=== PATIENT | female | born 1990 | race American Indian/Alaskan Native ===

== ENCOUNTER 2022-03-20 01:07 | Emergency (ER) | payer SELFPAY ==
[2022-03-20 01:44] VITALS: BP 108/71
[2022-03-20 08:19] LABS: Basophils # (Auto) 0.1 K/mm3 (0.0-0.1); Basophils % (Auto) 0.9 % (0.0-1.8); Eosinophils % (Auto) 0.3 % (0.0-4.3); Lymphocytes % (Auto) 25.6 % (13.4-35.0); Mean Corpuscular HGB Conc 34 % (30-34); Mean Corpuscular Volume 91 fl (79-97); Monocytes # (Auto) 0.9 K/mm3 (0.0-0.8); Platelet Count 319 K/mm3 (140-440); Red Blood Count 4.83 M/mm3 (3.65-5.03); Red Cell Distribution Width 15.1 % (13.2-15.2)
[2022-03-20 08:46] LABS: Alanine Aminotransferase 32 units/L (7-56); Albumin 5.4 g/dL (3.9-5); BUN/Creatinine Ratio 23; Blood Urea Nitrogen 18 mg/dL (7-17); Calcium 10.1 mg/dL (8.4-10.2); Hemolysis Index 17
[2022-03-20] MEDS ORDERED: SODIUM CHLORIDE 0.9% 1000 ML 1,000 ML IV ONE (08:58)
--- NOTE | 2022-03-20 10:03 | Emergency Department Report ---
ED Seizure HPI - General Chief Complaint: Seizure Stated Complaint: SEIZURE Time Seen by Provider: 03/20/22 10:02 Source: patient Mode of arrival: Ambulatory Limitations: No Limitations - History of Present Illness Initial Comments: Patient is a 32-year-old female that is in the ER for questionable seizure last night. She does have a seizure disorder. She states that she is taking Keppra 500 mg twice daily. Provider's first contact with patient was early this morning while cleaning out the waiting room from overnight patient congestion. She has been there most of the evening. She has had no seizure in the numerous hours that she has been here. She is ambulatory, nontoxic [id number] on exam. She is a poor informant. She denies any history other than the seizure disorder. MD Complaint: seizure Seizure History: known seizure disorder Place: home Possible Precipitating Event: none Associated Symptoms: denies other symptoms Treatments Prior to Arrival: none - Related Data Allergies Allergy/AdvReac Type Severity Reaction Status Date / Time No Known Allergies Allergy Unverified 03/20/22 01:44 ED Review of Systems ROS: Stated complaint: SEIZURE Other details as noted in HPI Comment: All other systems reviewed and negative ED Past Medical Hx - Past Medical History Previous Medical History?: Yes Hx Seizures: Yes - Surgical History Past Surgical History?: Yes - Family History Family history: no significant ED Physical Exam - General Limitations: No Limitations General appearance: alert, in no apparent distress - Head Head exam: Present: atraumatic, normocephalic - Eye Eye exam: Present: normal appearance - ENT ENT exam: Present: mucous membranes moist - Neck Neck exam: Present: normal inspection - Respiratory Respiratory exam: Present: normal lung sounds bilaterally. Absent: respiratory distress - Cardiovascular Cardiovascular Exam: Present: regular rate, normal rhythm. Absent: systolic murmur, diastolic murmur, rubs, gallop - GI/Abdominal GI/Abdominal exam: Present: soft, normal bowel sounds - Extremities Exam Extremities exam: Present: normal inspection - Back Exam Back exam: Present: normal inspection - Neurological Exam Neurological exam: Present: alert, oriented X3 - Psychiatric Psychiatric exam: Present: normal affect, normal mood - Skin Skin exam: Present: warm, dry, intact, normal color. Absent: rash ED Course Vital Signs 03/20/22 01:39 Temperature 98.9 F Pulse Rate 87 Respiratory 16 Rate Blood Pressure 108/71 [Right] O2 Sat by Pulse 97 Oximetry ED Medical Decision Making - Lab Data Result diagrams: 03/20/22 08:05 03/20/22 08:05 - Medical Decision Making Labs 03/20/22 03/20/22 08:05 08:05 WBC 7.9 RBC 4.83 Hgb 15.0 H Hct 44.0 H MCV 91 MCH 31 MCHC 34 RDW 15.1 Plt Count 319 Lymph % (Auto) 25.6 [place] % (Auto) 11.0 H Eos % (Auto) 0.3 Baso % (Auto) 0.9 Lymph # (Auto) 2.0 [place] # (Auto) 0.9 H Eos # (Auto) 0.0 Baso # (Auto) 0.1 Seg Neutrophils % 62.2 Seg Neutrophils # 4.9 Sodium 142 Potassium 4.4 Chloride 106.8 Carbon Dioxide 22 Anion Gap 18 BUN 18 H Creatinine 0.8 Estimated GFR > 60 BUN/Creatinine Ratio 23 Glucose 92 Calcium 10.1 Total Bilirubin 1.00 AST 21 ALT 32 Alkaline Phosphatase 65 Total Creatine Kinase 396 H Total Protein 8.7 H Albumin 5.4 H Albumin/Globulin Ratio 1.6 Vital Signs 03/20/22 01:39 Temperature 98.9 F Pulse Rate 87 Respiratory 16 Rate Blood Pressure 108/71 [Right] O2 Sat by Pulse 97 Oximetry Labs noted. CK mildly elevated. But creatinine normal. Patient taking p.o. No seizure activity noted in the close to 12 hours patient has been in the emergency department. She is ambulatory. She is taking p.o. Patient has a known seizure disorder and is on her Keppra. Patient being discharged home with discharge plan of care including diet, activity, medications and follow-up. Have given her referral for follow-up for management of her Keppra and other medical concerns. She verbalizes understanding of discharge plan of care - Differential Diagnosis ?sz Critical care attestation.: If time is entered above; I have spent that time in minutes in the direct care of this critically ill patient, excluding procedure time. ED Disposition Clinical Impression: Seizure disorder Disposition: 01 HOME / SELF CARE / HOMELESS Is pt being admited?: No Does the pt Need Aspirin: No Condition: Stable Instructions: Seizure, Adult, [id number] Additional Instructions: continue your home meds follow up with pcp ruth referral below Referrals: PAMELA BONILLA MD [Staff Physician] - 3-5 Days Time of Disposition: 10:03
== END 2022-03-20 12:04 | disposition home or self-care (01) ==
LOC: ED 01:07
DX: G40.909 Epilepsy, unspecified, not intractable, without status epilepticus (principal)
CPT/HCPCS: 36415; 80053; 82550; 85025; 99283

== ENCOUNTER 2022-04-17 12:30 | Emergency (ER) | payer SELFPAY ==
[2022-04-17 12:47] VITALS: BP 117/69
--- NOTE | 2022-04-17 13:46 | Emergency Department Report ---
ED General Adult HPI - General Chief complaint: Seizure Stated complaint: SEIZURES Source: patient Mode of arrival: Ambulatory Limitations: No Limitations - History of Present Illness Initial comments: 30-year-old female past medical history of seizure reports to the ER for medication refill for her Keppra 500 mg twice a day refill. Patient states that she has been out of her medication for 2 days. Reports no recent seizure at this current moment. Prior ER chart review shows the patient was seen here on 20 March as last date of her seizure. No other acute symptoms reported at this moment. - Related Data Previous Rx's Medication Instructions Recorded Last Taken Type levETIRAcetam [Keppra TAB] 500 mg PO BID 30 Days #60 tablet 04/17/22 Unknown Rx Allergies Allergy/AdvReac Type Severity Reaction Status Date / Time No Known Allergies Allergy Unverified 03/20/22 01:44 ED Review of Systems ROS: Stated complaint: SEIZURES Other details as noted in HPI Constitutional: denies: chills, fever Eyes: denies: eye pain, eye discharge, vision change ENT: denies: ear pain, throat pain Respiratory: denies: cough, shortness of breath, wheezing Cardiovascular: denies: chest pain, palpitations Endocrine: no symptoms reported Gastrointestinal: denies: abdominal pain, nausea, diarrhea Genitourinary: denies: urgency, dysuria, discharge Musculoskeletal: denies: back pain, joint swelling, arthralgia Skin: denies: rash, lesions Neurological: denies: headache, weakness, paresthesias Psychiatric: denies: anxiety, depression Hematological/Lymphatic: denies: easy bleeding, easy bruising ED Past Medical Hx - Past Medical History Previous Medical History?: Yes Hx Seizures: Yes - Medications Home Medications: Home Medications Medication Instructions Recorded Confirmed Last Taken Type levETIRAcetam [Keppra TAB] 500 mg PO BID 30 Days #60 tablet 04/17/22 Unknown Rx ED Physical Exam - General Limitations: No Limitations General appearance: alert, in no apparent distress - Head Head exam: Present: atraumatic, normocephalic - Eye Eye exam: Present: normal appearance - ENT ENT exam: Present: mucous membranes moist - Neck Neck exam: Present: normal inspection - Respiratory Respiratory exam: Present: normal lung sounds bilaterally. Absent: respiratory distress - Cardiovascular Cardiovascular Exam: Present: regular rate, normal rhythm. Absent: systolic murmur, diastolic murmur, rubs, gallop - GI/Abdominal GI/Abdominal exam: Present: soft, normal bowel sounds - Extremities Exam Extremities exam: Present: normal inspection - Back Exam Back exam: Present: normal inspection - Neurological Exam Neurological exam: Present: alert, altered, oriented X3 - Psychiatric Psychiatric exam: Present: normal affect, normal mood - Skin Skin exam: Present: warm, dry, intact, normal color. Absent: rash ED Course Vital Signs 04/17/22 12:43 Temperature 98.1 F Pulse Rate 103 H Respiratory 18 Rate Blood Pressure 117/69 [Right] ED Medical Decision Making - Medical Decision Making 30-year-old female past medical history of seizures. No recent seizure activity last week. Patient reports that she has run out of her seizure medication and is here for seizure medication refill. No acute symptoms reported. Patient has no acute distress. No acute findings on physical exam. Patient will receive prescription for 30-day supply of Keppra 500 twice daily refill. Patient will follow her primary care for her seizure medication and seizure treatment management. Patient agrees with plan of care and verbalizes understanding. Patient is stable for discharge. Vital Signs 04/17/22 12:43 Temperature 98.1 F Pulse Rate 103 H Respiratory 18 Rate Blood Pressure 117/69 [Right] Critical care attestation.: If time is entered above; I have spent that time in minutes in the direct care of this critically ill patient, excluding procedure time. ED Disposition Clinical Impression: Medication refill Disposition: HOME / SELF CARE / HOMELESS Is pt being admited?: No Does the pt Need Aspirin: No Condition: Stable Instructions: Seizure, Adult Prescriptions: levETIRAcetam [Keppra TAB] 500 mg PO BID 30 Days #60 tablet Referrals: TR CINTRON RACE [facility] DRIVER [Primary Care Provider] - 3-5 Days Time of Disposition: 13:45 Print Language: CHINESE
== END 2022-04-17 15:41 | disposition home or self-care (01) ==
LOC: ED 12:30
DX: R56.9 Unspecified convulsions (principal); Z76.0 Encounter for issue of repeat prescription; Z79.899 Other long term (current) drug therapy
CPT/HCPCS: 99282

== ENCOUNTER 2022-04-18 10:55 | Emergency (ER) | payer SELFPAY | END 2022-04-18 13:30 | disposition left against medical advice (07) | LOC: ED 10:55 | DX: R56.9 Unspecified convulsions (principal); Z53.21 Procedure and treatment not carried out due to patient leaving prior to being seen by health care provider ==